=== PATIENT | male | born 1970 | race Caucasian/White ===

== ENCOUNTER 2024-11-25 06:24 | Day surgery (SDC) | payer OTHER ==
[2024-11-24 16:34] LABS: Absolute Eosinophils 0.1 K/uL (0-0.5); Absolute Lymphocytes (CBC) 1.8 K/uL (0.7-4.9); Absolute Monocytes 0.5 K/uL (0.1-1.3); Absolute Neutrophil 4.5 K/uL (1.8-8.0); Basophils % 0.6 % (0-1.3); Eosinophils % 1.7 % (0-4.4); Hematocrit 52.4 % (39.6-49.0); Lymphocytes % 25.8 % (15.3-44.8); MCHC 34.3 g/dL (32.0-36.0); MCV 87.5 fL (80-100); Monocytes % 7.2 % (3.3-12.3); Neutrophils % 64.7 % (41.7-73.7); Nucleated Red Blood Cells % 0.1 % (0-0); RBC Red Blood Cell Count 5.99 M/uL (4.33-5.43); Red Cell Distribution Width 14.8 % (12.1-15.2)
[2024-11-24 16:36] LABS: Anion Gap 7.5 mEq/L (5.0-15.0); Potassium 3.5 mEq/L (3.5-5.1)
[2024-11-24 16:45] LABS: MPV 8.8 fL (7.6-11.3); Platelets 109 thou/uL (152-406)
[2024-11-24 19:43] LABS: Blood Morphology Comment NOT SEEN (NOT SEEN); Platelet Estimate DECR; Platelets Clumped FEW; White Blood Cell Scan OK (OK)
[2024-11-25] MEDS ORDERED: Ringers Lactate 1,000 ML IV ONE ×2 (06:46→09:09)
[2024-11-25] MEDS ORDERED: HYDROMORPHONE HCL 1 MG/ML INJ ONE (07:09)
[2024-11-25] MEDS ORDERED: SUGAMMADEX SODIUM 200 MG/2 ML VIAL IV ONE (07:10)
[2024-11-25] MEDS ORDERED: LIDOCAINE 2% MPF 5 ML VIAL ONE ×2 (07:18→09:39)
[2024-11-25] MEDS ORDERED: propofoL 200 MG/20 ML VIAL IV ONE ×2 (07:18→09:59)
[2024-11-25] MEDS ORDERED: ONDANSETRON 4 MG/2 ML VIAL ONE (07:18)
[2024-11-25] MEDS ORDERED: ROCURONIUM 50 MG/5 ML VIAL IV ONE (07:19)
[2024-11-25] MEDS ORDERED: MIDAZOLAM HCL 2 MG/2 ML INJ ONE (07:19)
[2024-11-25] MEDS ORDERED: FENTANYL CITR 100 MCG/2 ML ONE (07:19)
[2024-11-25] MEDS ORDERED: SUCCINYLCHOLINE 20 MG/ML (10 ML) IV ONE (07:32)
[2024-11-25] MEDS: CEFAZOLIN SODIUM 2 GM/VIAL ONE (07:46)
[2024-11-25] MEDS ORDERED: CLINDAMYCIN 900MG/D5W 900 MG/50 ML IVPB IV ONE (08:00)
[2024-11-25] MEDS ORDERED: dexAMETHasone 10 MG/ML VIAL ONE (08:03)
[2024-11-25] MEDS ORDERED: EPHEDRINE SULF 50 MG/ML VIAL ONE (08:05)
[2024-11-25] MEDS ORDERED: GLYCOPYRROLATE 0.2 MG/ML SYR ONE (08:50)
[2024-11-25] MEDS: LIDOCAINE HCL/EPINEPHRINE 20 ML MDV ONE (09:08)
[2024-11-25] MEDS ORDERED: Phenylephrine HCl 10 MG/ML 1 ML VIAL ONE (09:39)
[2024-11-25] MEDS ORDERED: NS 0.9% VIAL 10 ML ONE (09:39)
[2024-11-25] MEDS ORDERED: Mastisol Adhesive Liq ONE (09:51)
[2024-11-25] MEDS: ACETAMINOPHEN 160 MG/5 ML UCUP ONE (11:41)
--- NOTE | 2024-11-25 11:48 | EKG ---
Test Date: 2024-11-24 Test Time: 15:37:10 Director Physical: SARAH MEASUREMENT RESULTS: Intervals: Rate: 84 CT: 196 QRSD: 126 QT: 370 QTc: 437 [place]: P: 53 CT: 196 QRS: -63 T: 72 INTERPRETIVE STATEMENTS: Normal sinus rhythm Possible Left atrial enlargement Left axis deviation Nonspecific intraventricular block Abnormal ECG No previous ECG available for comparison Electronically Signed On 11-25-24 11:47:34 CDT by Ventura Dubon
[2024-11-25 12:52] VITALS: BP 158/79; TEMP 98.1; O2SAT 95
--- NOTE | 2024-11-30 20:56 | OP ---
Date of Procedure: 11/25/2024 Surgeon: ERNIE MUELLER Primary Care Physician: Unknown. Referring Physician: Unknown. Preoperative Diagnoses: 1. Severe obstructive sleep apnea. 2. Soft palate hypertrophy. 3. Obesity. 4. Hypertension. Postoperative Diagnoses: 1. Severe obstructive sleep apnea. 2. Soft palate hypertrophy. 3. Obesity. 4. Hypertension. Procedures: 1. Drug-induced sleep endoscopy. 2. Uvulopalatoplasty. 3. Hyoid myotomy and suspension. Anesthesia: General endotracheal anesthesia was administered. Approximately 5 to 7 mL of 1% lidocai ne with 1:100,000 epinephrine was infiltrated into the soft palate and uvula, an additional 5 to 7 mL of 1% lidocaine with 1:100,000 epinephrine was infiltrated at the submental incision site and the hy oid bone incision site. Specimens: None. Estimated Blood Loss: Less than 5 mL. Findings: Moderate retrodisplacement of hyoid bone with respect to the superior edge of the thyroid cartilage. The patient also had complete concentric collapse with significant lateral wall collapse during endoscopy. The patient also had a retrolingual obstruction during endoscopy. The patient has a redundant soft palate Kessler type 3/4 and elongated uvula, severe. Complications: None. Disposition: Stable. The patient tolerated procedure well. Indications For Procedure: The patient is a pleasant 54-year-old male with chronic longstanding obst ructive sleep apnea, has been placed on CPAP and BiPAP and while he was consistent in wearing his CPA P mask, he was intolerant to it as he would pull it off frequently and even if it stayed on all night , he would feel extremely fatigued in the morning and throughout the day. The patient's BMI is over 40 and he did not meet criteria for the Inspire hypoglossal nerve implant. Thus, these other procedu res were explained to him and he agreed that he would like to proceed with the procedures including a s mentioned above. He understood, all questions were answered. Risks versus benefits and complicati ons were explained in detail and a consent form was signed, which was placed in the chart. Description Of Procedure: The patient was transferred from the preoperative holding area to the oper ative suite by Department of Anesthesia, placed on the operating table supine, sedated in the normal fashion with IV propofol. The patient received approximately 100 mg of propofol and once fully aslee p, I then inserted the flexible nasopharyngoscope into the right nasal cavity and advanced towards th e posterior choanae of the nasal cavity. Once in place, I visualized his velopharynx over a period o f 3 to 5 minutes while recording. During recording, the patient had almost complete concentric colla pse and probably about 25% to 30% lateral wall collapse. Upon awakening, the patient had very little anterior/posterior closure. Once the recording was completed, I removed the scope. The patient was then further sedated and intubated in normal fashion. He was rotated 90 degrees and a shoulder roll was placed. The nose was covered with sterile blue towels and moist Ray-Arnulfo placed over the upper l ip for protection. I infiltrated 1% lidocaine with 1:100,000 epinephrine at the submental and hyoid incision sites. I annemarie crowley inserted a McIvor retractor into the right oral commissure and directed along the endotracheal tu be and suspended from the Dangelo stand. I infiltrated additional 5 to 7 mL of 1% lidocaine into the so ft palate and uvula. I then made an inverted V incision into the central superior palate through the mucosa down the muscle and then isolated the mucosa off the soft palate and uvula. I trimmed the uv germán down to uvular stump and then I flipped the tip of the uvular stump superiorly to the beginning o f the inverted V incision site and I placed tacking sutures with 3-0 Vicryl suture in a simple interr upted fashion. I then reapproximated the mucosa in an inverted V fashion with 3-0 Vicryl in simple i nterrupted and running fashion. This thereby opened up the velopharynx and the oral cavity. Next, I removed the McIvor retractor and it was removed and de-suspended from the Dangelo stand. Head a nd eyes were uncovered. The patient was then returned back to the Department of Anesthesia. The nec k incisions were then sterilely prepped and draped. Next, an incision was made into the submental area of the chin and this was done with a 15 blade scal pel and then I switched to monopolar electrocautery and dissected down the submental bone. Once the periosteum was located, I elevated the periosteum off the chin. I then drilled 2 holes on either chacho e of the genial tubercle and placed 2 screws into the holes with the Passer threads in the 12 to 6 o' clock position. Next, I made an incision through the skin directly over the hyoid bone with a #15 blade scalpel to th e subcutaneous tissue. I then dissected to the platysma utilizing monopolar electrocautery on a sett ing of 20 for coagulation. Once at the subplatysmal region, I switched over to a ligature and divide d the platysma and then dissected down to the hyoid bone utilizing the ligature. The hyoid bone was retrodisplaced with regard to the superior edge of the thyroid cartilage and the hyoid bone was low-s et. Once this level, the curved metal suture passer was pulled through from the inferior to superior dire ction behind the hyoid bone over a cricoid hook. The wire passer was then looped through the suture passer and a Timothy green/white suture was then threaded through the wire passer and then that was t hreaded through the curved metal suture passer, thereby threading the green and white suture through. The curved metal hook suture passer was then brought out inferiorly below the hyoid bone thereby br inging the green and white looped portion of the suture out inferiorly. The blue and white permanent thread tail sutures were then passed 1 at a time through the looped port ion of the green/quite suture and this was pulled superiorly while holding the blue and white sutures with a hemostat inferiorly. I then placed hinged knots with the blue and white suture over the hyoi d bone. Next, I tunneled from mid pyle incision to the neck incision utilizing long hemostat through 2 separa te tunnels and then the blue and white sutures were brought out separately through the tunnels up to the submental screws. The tail of the blue suture and the tail of the white suture were then threaded through the green/whi te inferior suture loops on the screw heads. Once they were threaded through, the shoulder roll was removed and then once the patient was supine, I then placed a reference knot on the blue and white greene ture. At this point, I was able to suspend both sutures approximately 25 mm and this was locked into place with an Sacha screwdriver. Once the screw heads were tightened, I placed additional knots to hold the sutures in place. The areas were irrigated with clindamycin and saline and then the subcuta neous tissue was reapproximated with 3-0 Vicryl in a simple interrupted fashion. The subdermal and d ermal tissue was reapproximated with 4-0 Monocryl in a simple interrupted fashion. The epidermis was then reapproximated in a subcuticular fashion with 4-0 Monocryl suture. A compressive face lift mitra ssing was placed. He tolerated the procedure well, will be discharged home on antibiotic and analges ic medication, will follow up in 1 week or sooner if needed. ROLLY/MARIE Voice ID: [id number] Report ID: [id number]
== END 2024-11-25 12:20 | disposition home or self-care (01) ==
LOC: OR 06:24
PROVIDERS: ATTEND Otolaryngology Facial Plastic Surgery
PROC: 0CB3XZZ Excision of Soft Palate, External Approach (ICD-10-PCS; principal; 2024-11-25 07:40)
PROC: 0NSX0ZZ Reposition Hyoid Bone, Open Approach (ICD-10-PCS; 2024-11-25 07:40)
PROC: 0CJY8ZZ Inspection of Mouth and Throat, Via Natural or Artificial Opening Endoscopic (ICD-10-PCS; 2024-11-25 07:40)
DX: G47.33 Obstructive sleep apnea (adult) (pediatric) (principal); E66.9 Obesity, unspecified; I10 Essential (primary) hypertension; K13.79 Other lesions of oral mucosa
CPT/HCPCS: 42145; 21685; 42299; 93005; 85025; 80048; 36415; 42975; A4216; J2704; J2371; J2003 ×2; J2250; J3010; J1100; J1171; J2405; J7120 ×2